=== PATIENT | male | born 1985 | race Caucasian/White ===

== ENCOUNTER 2019-07-24 17:19 | Inpatient (IN) | payer SELFPAY ==
[~2019-07-24] VITALS: Ht 182.9 cm; Wt 87.5 kg
--- NOTE | 2019-07-24 17:25 | NUR ---
EKG IN PROGRESS.
--- NOTE | 2019-07-24 17:29 | NUR ---
PLACED IN BED 2B FOR EVAL.
--- NOTE | 2019-07-24 17:37 | NUR ---
AWAKE ALERT ORIENTED, CHIEF OF ANESTHESIOLOGY STARTED TO FEEL PALPITATION,WAS DIZZY AND NOW NO DIZZINESS, INFORMATICS SCIENTIST IN UNCONTROLLED AF WITH VENTRICULSR RESPONSE 164/MINUTE, RESP, EASY, DR KUNZ BESIDES BED EVALAUTING PT,
[2019-07-24 17:56] LABS: BASOPHIL % 0.3 % (0-2); PLATELET COUNT 268 x10^3mcL (130-400); RED CELL DISTRIBUTION WIDTH 12.7 % (11.5-14.5)
[2019-07-24 18:07] LABS: CALCIUM 8.4 mg/dL (8.5-10.1); CARBON DIOXIDE 25.4 mmol/L (21-32); CHLORIDE SERUM 105 mmol/L (98-107); CREATININE SERUM 1.2 mg/dL (0.7-1.3); GFR1 > 60 mL/min; GLUCOSE SERUM 98 mg/dL (74-106); POTASSIUM SERUM 3.6 mmol/L (3.5-5.1); SODIUM SERUM 143 mmol/L (136-145)
[2019-07-24 18:20] LABS: ALBUMIN 3.9 g/dL (3.4-5.0); ALKALINE PHOSPHATASE 137 U/L (46-116); ALT/SGPT 59 U/L (16-63); AST/SGOT 28 U/L (15-37); BILIRUBIN TOTAL 0.32 mg/dL (0.20-1.00); T4(THYROXINE) 8.1 ug/dL (4.7-13.3); TOTAL PROTEIN, SERUM 7.2 g/dL (6.4-8.2)
--- NOTE | 2019-07-24 18:20 | NUR ---
PT REPORTS FEELING BETTER. ASYMPTOMATIC. PT AAOX4 NO DISTRESS REMAINS ON FULL CM
--- NOTE | 2019-07-24 18:49 | NUR ---
PT MEDICATED PER MD ORDERS SEE EMAR. PT IN NO DISTRESS ON FULL CM DENIES CP AND OR ANY OTHER SYMPTOM. PTS BROTHER AT BEDSIDE WILL MONITOR
--- NOTE | 2019-07-24 19:03 | NUR ---
REPORT RECEIVED FROM ELVIS ROWLEY RN
--- NOTE | 2019-07-24 19:14 | NUR ---
MD KUNZ MADE AWARE OF PT CURRENT IRREGULAR HR. NEW ORDERS VERBALIZED. SEE EMAR FOR MEDICATIONS.
--- NOTE | 2019-07-24 19:20 | NUR ---
PT IS ASYMPTOMATIC WITH AFIB AT THIS TIME. PT AXO X4. PT SPEAKING IN CLEAR AND FULL SENTENCES. PT DENIES ANTHONY PAIN. PT IS NOT DIAPHORETIC. NAD AT THIS TIME. PT AWARE HE WILL BE ADMITTED TO THE HOSPITAL
--- NOTE | 2019-07-24 19:29 | NUR ---
REPORT GIVEN TO SANJU WING
--- NOTE | 2019-07-24 19:30 | NUR ---
RECEIVED REPORT FROM MACIEJ LOPES FROM ED. ALL QUESTIONS AND CONCERNS ADDRESSED.
--- NOTE | 2019-07-24 19:31 | NUR ---
18G NOTED TO MARCELLA. SANJU RN MADE AWARE 18G NOT 20G. PROJECT COACH URMILA MADE AWARE
--- NOTE | 2019-07-24 19:33 | NUR ---
SANJU WING INFORMED ME THAT ROOM NOT CLEAN AT THIS TIME AND HE WILL CALL BACK WHEN IT IS CLEAN AND READY FOR PT.
[2019-07-24 19:39] LABS: AMPHETAMINE QUAL UR NONE DETECTED (See below)
--- NOTE | 2019-07-24 20:00 | NUR ---
RECEIVED PT FROM ED VIA [facility], CAME IN DUE TO PALPITATIONS. AAOX4. DENIES HEADACHE/DIZZINESS. NO SOB NOTED, LUNG SOUNDS CTA. O2 SAT-99% ON 2LPM/NC. DENIES CHEST PAIN/PRESSURE, AFIB ON THE MONITOR, HR AT 123. DENIES ABDOMINAL DISCOMFORT. BOWEL SOUNDS ACTIVE. VOIDS. IV SITE ON THE LAC IS PATENT AND INTACT. SIDE RAILS UPX2. CALL LIGHT ON REACH. ENDORSED TO PRIMARY NURSE SANJU FOR CONTINUITY OF CARE
--- NOTE | 2019-07-24 20:00 | NUR ---
PT ARRIVED TO UNIT FROM ED TO 222 BED B.
[2019-07-24 20:02] LABS: CHOLESTEROL/HDL RATIO 5.9
[2019-07-24 20:08] VITALS: BP 104/67
[2019-07-24 20:14] VITALS: Ht 182.9 cm; Wt 87.5 kg
[2019-07-25 05:52] VITALS: BP 107/61
--- NOTE | 2019-07-25 06:05 | NUR ---
PT HR ELEVATED TO 16O'S IN RAPID A-FIB, EKG TAKEN BY RT MISAEL PATEL, ORDERED CARDIZEM 20MG IVP. GIVEN AND NOW HR IN 90S IN A-FLUTTER
--- NOTE | 2019-07-25 06:25 | NUR ---
EKG TAKEN BY RT DOUGLAS. PT DENIES CHEST PAIN, SOB, DIZZINESS AND LIGHT HEADEDNESS AT THIS TIME
--- NOTE | 2019-07-25 07:05 | NUR ---
RECEIVED BEDSIDE REPORT FROM BUNCH MAKER NURSE AT THIS TIME. PATIENT RESTING COMFORTABLY IN BED. NO APPARENT DISTRESS OR DISCOMFORT NOTED. BREATHING EVEN AND UNLABORED. NO RESPIRATORY DISTRESS OR DISCOMFORT NOTED. PATIENT DENIES SHORTNESS OF BREATH. PATIENT DENIES CHEST PAIN/PRESSURE AT THIS TIME. IV PATENT AND INTACT. ALL QUESTIONS AND CONCERNS ADDRESSED. ALL NEEDS ATTENDED TO. WILL CONTINUE TO MONITOR
[2019-07-25 07:21] LABS: BASOPHIL % 0.5 % (0-2); PLATELET COUNT 251 x10^3mcL (130-400); RED CELL DISTRIBUTION WIDTH 12.9 % (11.5-14.5)
[2019-07-25 07:28] LABS: CALCIUM 8.2 mg/dL (8.5-10.1); CARBON DIOXIDE 29.4 mmol/L (21-32); CHLORIDE SERUM 106 mmol/L (98-107); CREATININE SERUM 1.1 mg/dL (0.7-1.3); GFR1 > 60 mL/min; GLUCOSE SERUM 85 mg/dL (74-106); PHOSPHOROUS 2.7 mg/dL (2.5-4.9); POTASSIUM SERUM 4.1 mmol/L (3.5-5.1); SODIUM SERUM 143 mmol/L (136-145)
[2019-07-25 08:45] VITALS: BP 100/66
--- NOTE | 2019-07-25 10:22 | NUR ---
MORNING MEDICATION ADMINISTERED AT THIS TIME. PATIENT TOLERATED WELL. NO APPARENT ADVERSE EFFECTS NOTED. ALL NEEDS ATTENDED TO. WILL CONTINUE TO MONITOR
[2019-07-25 12:40] VITALS: BP 111/61
--- NOTE | 2019-07-25 13:30 | NUR ---
DR WHEELER AT BEDSIDE REVIEWING POC WITH PATIENT AT THIS TIME. ALL NEEDS ATTENDED TO. WILL CONTINUE TO MONITOR
--- NOTE | 2019-07-25 14:30 | NUR ---
Discount pharmacy card and list to low cost medical clinics given to patient by Agatha.
[2019-07-25 16:59] VITALS: BP 105/61
--- NOTE | 2019-07-25 18:31 | NUR ---
PATIENT RESTING COMFORTABLY IN BED AT THIS TIME. NO APPARENT DISTRESS OR DISCOMFORT NOTED. IV PATENT AND INTACT. ALL QUESTIONS AND CONCERNS ADDRESSED. ALL NEEDS ATTENDED TO. SAFETY PRECAUTIONS MAINTAINED. WILL ENDORSE ALL CARE TO REPORT MANAGER NURSE
--- NOTE | 2019-07-25 19:42 | NUR ---
Awake and verbally responsive. Up in the chair. No respiratory distress noted on room air. Denies pain. Denies n/v. Normal sinus rhythm. Will cont.to monitor.
[2019-07-25 21:13] VITALS: BP 112/70
--- NOTE | 2019-07-26 04:18 | NUR ---
AFebrile. Resting in bed. No significant change in condition noted. Denies chest pain. In no apparent distress.
[2019-07-26 06:00] VITALS: BP 108/69
--- NOTE | 2019-07-26 07:10 | NUR ---
RECEIVED BEDSIDE REPORT FROM RAND SEWER NURSE AT THIS TIME. PATIENT RESTING COMFORTABLY IN BED. NO APPARENT DISTRESS OR DISCOMFORT NOTED. BREATHING EVEN AND UNLABORED. NO RESPIRATORY DISTRESS OR DISCOMFORT NOTED. PATIENT DENIES CHEST PAIN/PRESSURE AT THIS TIME. IV PATENT AND INTACT. ALL QUESTIONS AND CONCERNS ADDRESSED. ALL NEEDS ATTENDED TO. WILL CONTINUE TO MONITOR
[2019-07-26 07:28] LABS: CALCIUM 8.2 mg/dL (8.5-10.1); CARBON DIOXIDE 27.1 mmol/L (21-32); CHLORIDE SERUM 104 mmol/L (98-107); CREATININE SERUM 0.9 mg/dL (0.7-1.3); GFR1 > 60 mL/min; GLUCOSE SERUM 93 mg/dL (74-106); PHOSPHOROUS 2.7 mg/dL (2.5-4.9); POTASSIUM SERUM 3.8 mmol/L (3.5-5.1); SODIUM SERUM 141 mmol/L (136-145)
[2019-07-26 07:51] LABS: BASOPHIL % 0.4 % (0-2); PLATELET COUNT 261 x10^3mcL (130-400); RED CELL DISTRIBUTION WIDTH 13.1 % (11.5-14.5)
[2019-07-26 08:50] VITALS: BP 120/60
--- NOTE | 2019-07-26 10:03 | NUR ---
ALL MORNING MEDICATIONS ADMINISTERED AT THIS TIME. PATIENT TOLERATED MEDICATION WELL. NO APPARENT ADVERSE EFFECTS NOTED. ALL NEEDS ATTENDED TO. WILL CONTINUE TO MONITOR
[2019-07-26 12:45] VITALS: BP 104/67
--- NOTE | 2019-07-26 12:45 | NUR ---
PATIENT SITTING UP IN BED EATING LUNCH AT THIS TIME. NO APPARENT DISTRESS NOTED. PATIENT TOLERATING DIET WELL. ALL NEEDS ATTENDED TO. WILL CONTINUE TO MONITOR
[2019-07-26 16:21] VITALS: BP 113/64
--- NOTE | 2019-07-26 17:45 | NUR ---
PATIENT SITTING UP IN BED EATING DINNER AT THIS TIME. PATIENT TOLERATING DIET WELL. NO APPARENT DISTRESS NOTED. ALL NEEDS ATTENDED TO. WILL CONTINUE TO MONITOR
[2019-07-26 18:00] VITALS: BP 113/64
[2019-07-26] MEDS ORDERED: ECO81 PO (18:00)
--- NOTE | 2019-07-26 18:45 | NUR ---
PATIENT STABLE TO BE DISCHARGED TO HOME. DISCHARGE INSTRUCTIONS GIVEN WELL EDUCATION. INSTRUCTED PATIENT ABOUT FOLLOW UP APPOINTMENT WITH PCP. NOTIFIED PATIENT [facility] WILL FOLLOW UP WITH APPOINTMENT. PROVIDED PACKET WITH CD TO PATIENT. PATIENT VERBALIZES UNDERSTANDING. IV REMOVED WITH CATH INTACT. ID BANDS REMOVED. TELE MONITOR REMOVED AND RETURNED TO WARP DRAWER. ALL BELONGINGS WITH PATIENT. DR WHEELER AT BEDSIDE REVIEWING POC. PATIENT VERBALIZED UNDERSTANDING. ALL QUESTIONS AND CONCERNS ADDRESSED. ALL NEEDS ATTENDED TO. WILL CONTINUE TO MONITOR
== END 2019-07-26 18:45 | disposition home or self-care (01) | DRG 310 ==
LOC: ED 17:19 → DU 19:11
PROVIDERS: Emergency Medicine; ADMIT Internal Medicine
DX: I48.0 Paroxysmal atrial fibrillation (principal); Z87.891 Personal history of nicotine dependence; E78.5 Hyperlipidemia, unspecified
CPT/HCPCS: 83880; G0378; J3490; J7030; Q0092